=== PATIENT | male | born 1990 | race Two or more races ===

== ENCOUNTER 2022-10-14 19:11 | Emergency (ER) | payer OTHER ==
[2022-10-14 20:33] LABS: BASOPHILS PERCENT AUTO 0.5 % (0.0-1.5); EOSINOPHILS ABSOLUTE AUTO 0.4 K/uL (0.0-0.7); EOSINOPHILS PERCENT AUTO 4.4 % (0.0-7.0); HEMATOCRIT 39.6 % (38.0-50.0); HEMOGLOBIN 13.7 g/dL (13.0-17.0); LYMPHOCYTES ABSOLUTE AUTO 1.9 K/uL (0.6-2.4); LYMPHOCYTES PERCENT AUTO 23.3 % (16.0-40.0); MEAN CORPUSCULAR HEMOGLOBIN 29.8 pg (27.0-32.0); MEAN CORPUSCULAR HGB CONC 34.6 g/dL (31.0-37.0); MEAN CORPUSCULAR VOLUME 86.3 fL (80.0-98.0); MONOCYTES ABSOLUTE AUTO 0.7 K/uL (0.0-0.8); MONOCYTES PERCENT AUTO 7.8 % (0.0-15.0); NEUTROPHILS ABSOLUTE AUTO 5.3 K/uL (1.4-5.7); NRBC ABSOLUTE 0 K/uL; PLATELET COUNT,PLT 219 K/uL (150-400); RED BLOOD CELL COUNT 4.59 M/uL (4.50-5.90); WHITE BLOOD CELL COUNT,WBC 8.33 K/uL (4.0-11.0)
[2022-10-14 21:11] LABS: ALBUMIN 3.8 g/dL (3.4-5.0); BILIRUBIN TOTAL 0.3 mg/dL (0.2-1.0); CALCIUM 8.4 mg/dL (8.5-10.1); CARBON DIOXIDE,CO2 27.3 mmol/L (21.0-32.0); EST CRCL DRUG DOSING (CG) 101.65 mL/min; POTASSIUM,K 3.5 mmol/L (3.5-5.1); PROTEIN TOTAL,TP 7.6 g/dL (6.4-8.2)
[2022-10-14] MEDS ORDERED: Iopamidol 755 MG/ML 500 ML Multipack Bottle IVPUSH ONE (21:25)
== END 2022-10-14 22:33 | disposition home or self-care (01) ==
LOC: MW.ED 19:11
DX: R59.9 Enlarged lymph nodes, unspecified (principal); I10 Essential (primary) hypertension; Z20.822 Contact with and (suspected) exposure to COVID-19; Z79.899 Other long term (current) drug therapy
CPT/HCPCS: 36415; 70491; 71045; 80053; 85025; 86308; 87635; 99284; Q9967; U0002

== ENCOUNTER 2023-07-22 22:54 | Emergency (ER) | payer OTHER ==
[2023-07-22] MEDS: Sodium Chloride 0.9% 2.5 ML Syringe FLUSH PRN (23:51)
[2023-07-22] MEDS: Sodium Chloride 0.9% 1,000 ML IV ONE (23:51)
[2023-07-22] MEDS: Sodium Chloride 0.9% 10 ML Syringe FLUSH PRN (23:51)
[2023-07-23 00:07] LABS: BASOPHILS ABSOLUTE AUTO 0.04 K/uL (0.00-0.20); BASOPHILS PERCENT AUTO 0.5 % (0.0-1.0); EOSINOPHILS ABSOLUTE AUTO 0.27 K/uL (0.00-0.45); EOSINOPHILS PERCENT AUTO 3.5 % (0.0-6.0); HEMATOCRIT 44.3 % (42.0-52.0); HEMOGLOBIN 15.9 g/dL (14.0-18.0); IMMATURE GRAN ABSOLUTE AUTO 0.04 K/uL (0.00-0.05); IMMATURE GRAN PERCENT AUTO 0.5 % (0.0-0.4); LYMPHOCYTES ABSOLUTE AUTO 2.99 K/uL (1.00-4.80); LYMPHOCYTES PERCENT AUTO 38.9 % (24.0-44.0); MEAN CORPUSCULAR HEMOGLOBIN 30.8 pg (28.0-32.0); MEAN CORPUSCULAR HGB CONC 35.9 g/dL (32.0-36.0); MEAN CORPUSCULAR VOLUME 85.7 fL (83.0-99.0); MEAN PLATELET VOLUME 10.6 fL (9.4-12.4); MONOCYTES ABSOLUTE AUTO 0.57 K/uL (0.00-0.80); MONOCYTES PERCENT AUTO 7.4 % (0.0-8.0); NEUTROPHILS ABSOLUTE AUTO 3.77 K/uL (1.80-7.70); NEUTROPHILS PERCENT AUTO 49.2 % (41.0-71.0); PLATELET COUNT,PLT 258 K/uL (150-400); RED BLOOD CELL COUNT 5.17 M/uL (4.52-5.90); WHITE BLOOD CELL COUNT,WBC 7.68 K/uL (3.9-11.3)
== END 2023-07-23 01:34 | disposition home or self-care (01) ==
LOC: MW.ED 22:54
DX: R59.1 Generalized enlarged lymph nodes (principal); E86.0 Dehydration; F10.90 Alcohol use, unspecified, uncomplicated; I10 Essential (primary) hypertension; Z75.8 Other problems related to medical facilities and other health care; Z79.899 Other long term (current) drug therapy; Y90.9 Presence of alcohol in blood, level not specified
CPT/HCPCS: 36415; 80053; 85025; 96360; 99284; J3490; J7030

== ENCOUNTER 2023-09-15 19:28 | Emergency (ER) | payer OTHER ==
[2023-09-15 20:47] LABS: BILIRUBIN,URINE NEGATIVE (NEGATIVE); COLOR,URINE YELLOW; GLUCOSE,URINE NEGATIVE (NEGATIVE); KETONES,URINE NEGATIVE (NEGATIVE); LEUKOCYTE ESTERASE,URINE TRACE (NEGATIVE); NITRITE,URINE NEGATIVE (NEGATIVE); OCCULT BLOOD,URINE TRACE-INTACT (NEGATIVE); PROTEIN,URINE NEGATIVE (NEGATIVE)
[2023-09-15 20:48] LABS: APPEARANCE,URINE HAZY
[2023-09-15 20:53] LABS: BACTERIA,URINE FEW (NEGATIVE); EPITHELIAL CELLS,URINE NOT SEEN (NONE-FEW); MUCUS,URINE LIGHT (NONE-MOD)
[2023-09-15] MEDS ORDERED: Lidocaine 1% 2 ML ONE (21:06)
[2023-09-15] MEDS: cefTRIAXone 1 GM Vial IM ONE (21:11)
[2023-09-15] MEDS: Azithromycin 250 MG Tab PO ONE (21:11)
[2023-09-15 22:15] LABS: C. TRACHOMATIS BY PCR NOT DETECTED; N. GONORRHOEAE BY PCR DETECTED
== END 2023-09-15 21:17 | disposition home or self-care (01) ==
LOC: MW.ED 19:28
DX: N34.2 Other urethritis (principal); A64 Unspecified sexually transmitted disease; I10 Essential (primary) hypertension; Z86.16 Personal history of COVID-19; Z79.899 Other long term (current) drug therapy; Z75.8 Other problems related to medical facilities and other health care
CPT/HCPCS: 81001; 87086; 87491; 87591; 96372; 99283; A9270; J0696; J3490

== ENCOUNTER 2024-06-16 16:27 | Emergency (ER) | payer BC, OTHER | END 2024-06-16 18:43 | disposition home or self-care (01) | LOC: MW.ED 16:27 | DX: F41.9 Anxiety disorder, unspecified (principal); R45.89 Other symptoms and signs involving emotional state; I10 Essential (primary) hypertension; Z86.16 Personal history of COVID-19; Z79.899 Other long term (current) drug therapy; Z75.8 Other problems related to medical facilities and other health care | CPT/HCPCS: 99282; 99283 ==

== ENCOUNTER 2024-10-24 08:38 | Emergency (ER) | payer SELFPAY ==
[2024-10-24 09:20] LABS: APPEARANCE,URINE CLEAR; GLUCOSE,URINE NEGATIVE (NEGATIVE); OCCULT BLOOD,URINE NEGATIVE (NEGATIVE)
[2024-10-24 10:49] LABS: C. TRACHOMATIS BY PCR NOT DETECTED; N. GONORRHOEAE BY PCR NOT DETECTED
== END 2024-10-24 10:59 | disposition home or self-care (01) ==
LOC: MW.ED 08:38
DX: B08.1 Molluscum contagiosum (principal); I10 Essential (primary) hypertension; Z79.899 Other long term (current) drug therapy
CPT/HCPCS: 81003; 87491; 87591; 99283